=== PATIENT | male | born 1990 | race Caucasian/White ===

== ENCOUNTER 2016-04-15 01:47 | Emergency (ER) | payer OTHER ==
[~2016-04-15] VITALS: Ht 177.8 cm; Wt 70.5 kg
[~2016-04-15 01:47] MED LIST: AMOXICILLIN 8751 TAB PO; CEPHALEXIN500 M1 PO; CLEOCIN HC150 MG/CAP PO; NO HOME MEDICATIONS; NORCO 325 MG-51 TAB PO; NORCO 325 MG-7.1 TAB PO; PERCOCET 325 MG1 TA2 PO
[2016-04-15 02:06] LABS: BASO # 0.1 (0.0-0.2); BASO % 0.7 % (0.0-2.0); EOS # 0.4 (0.0-0.7); EOS % 4.3 % (0-4.0); GRAN # 4.1 (1.4-6.5); GRAN % 49.1 % (42.2-75.2); HEMATOCRIT 43.6 % (42.0-52.0); HEMOGLOBIN 15.2 g/dl (13.5-18.0); LYMPH # 3.1 (1.2-3.4); LYMPH % 37.2 % (20.0-51.0); MEAN CELL VOLUME 89 fl (80.0-100.0); MEAN CORPUSCULAR HEMOGLOBIN 31 pg (27.0-31.0); MEAN CORPUSCULAR HGB CONC 35 g/dl (33.0-37.0); MEAN PLATELET VOLUME 8.8 fl (7.4-10.4); MONO # 0.7 (0.1-0.6); MONO % 8.3 % (1.7-9.3); PLATELET COUNT 324 K/mm3 (130-400); RED BLOOD COUNT 4.91 M/mm3 (4.20-5.60); REDCELL DISTRIBUTION WIDTH-CV 12.3 % (11.5-14.5); WHITE BLOOD COUNT 8.3 K/mm3 (4.8-10.8)
[2016-04-15 02:10] LABS: INR 0.9 (0.8-3.0); PROTHROMBIN TIME 10.2 SECONDS (9.7-12.8)
[2016-04-15 02:13] LABS: ADJUSTED CALCIUM 9.2 mg/dL (8.4-10.2); ALANINE AMINOTRANSFERASE 37 U/L (21-72); ALBUMIN 4.3 gm/dL (3.5-5.0); ALKALINE PHOSPHATASE 55 U/L (50-136); ANION GAP 10 mmol/L (7-16); BILIRUBIN,TOTAL 0.5 mg/dL (0.0-1.0); BLOOD UREA NITROGEN 14 mg/dL (9-20); CALCIUM 9.4 mg/dL (8.4-10.2); CARBON DIOXIDE 31 mmol/L (22-30); CHLORIDE 99 mmol/L (98-107); CREATININE, serum 0.92 mg/dL (0.66-1.25); GLUCOSE 113 mg/dL (74-106); PARTIAL THROMBOPLASTIN TIME 26.3 SECONDS (26.0-37.0); POTASSIUM 3.7 mmol/L (3.4-5.0); SODIUM 141 mmol/L (137-145); TOTAL PROTEIN 7.4 gm/dL (6.4-8.2)
[2016-04-15 04:30] LABS: AMPHETAMINE URINE POSITIVE; BARBITURATES URINE NEGATIVE; BENZODIAZEPINES URINE NEGATIVE; BUPRENORPHINE URINE NEGATIVE; METHADONE URINE NEGATIVE; OPIATES URINE NEGATIVE; OXYCODONE URINE NEGATIVE; PHENCYCLIDINE URINE NEGATIVE; PROPOXYPHENE URINE NEGATIVE; THC CANNABINOIDS URINE POSITIVE
[2016-04-15] MEDS ORDERED: NORCO 325 MG-51 TAB PO (04:46)
[2016-04-15] MEDS ORDERED: CEPHALEXIN500 M1 PO (04:46)
[2016-04-15 05:37] VITALS: BP 126/81; PULSE 92
== END 2016-04-15 05:42 | disposition home or self-care (01) ==
LOC: COL.ER 01:47
PROVIDERS: Emergency Medicine
DX: S81.032A Puncture wound without foreign body, left knee, initial encounter (principal); W32.0XXA Accidental handgun discharge, initial encounter; Y92.009 Unspecified place in unspecified non-institutional (private) residence as the place of occurrence of the external cause; Z23 Encounter for immunization
CPT/HCPCS: J0690; J3010; J7030; Q9967

== ENCOUNTER 2016-07-29 13:43 | Emergency (ER) | payer OTHER ==
[~2016-07-29] VITALS: Ht 177.8 cm; Wt 77.3 kg
[2016-07-29 13:45] VITALS: BP 152/98; TEMP 98.6
[2016-07-29] MEDS ORDERED: PEN-VEE K500 MG PO (15:04)
[2016-07-29] MEDS ORDERED: NORCO 325 MG-51 TAB PO (15:04)
[2016-07-29 15:11] VITALS: PULSE 89
== END 2016-07-29 15:11 | disposition home or self-care (01) ==
LOC: COL.ER 13:43
DX: S02.5XXA Fracture of tooth (traumatic), initial encounter for closed fracture (principal); W22.8XXA Striking against or struck by other objects, initial encounter; K08.89 Other specified disorders of teeth and supporting structures; F17.210 Nicotine dependence, cigarettes, uncomplicated

== ENCOUNTER 2016-08-09 23:13 | Emergency (ER) | payer OTHER ==
[~2016-08-09] VITALS: Ht 177.8 cm; Wt 68.2 kg
[~2016-08-09 23:13] MED LIST changes: +PEN-VEE K500 MG PO
[2016-08-09 23:17] VITALS: TEMP 96.3
[2016-08-09 23:32] LABS: BASO % 0.5 % (0.0-2.0); EOS # 0.1 (0.0-0.7); GRAN # 4.8 (1.4-6.5); GRAN % 58.4 % (42.2-75.2); HEMOGLOBIN 15.6 g/dl (13.5-18.0); LYMPH # 2.6 (1.2-3.4); LYMPH % 31.4 % (20.0-51.0); MEAN CELL VOLUME 88 fl (80.0-100.0); MEAN CORPUSCULAR HEMOGLOBIN 31 pg (27.0-31.0); MEAN CORPUSCULAR HGB CONC 36 g/dl (33.0-37.0); MONO # 0.7 (0.1-0.6); MONO % 8.6 % (1.7-9.3); PLATELET COUNT 342 K/mm3 (130-400); REDCELL DISTRIBUTION WIDTH-CV 12.7 % (11.5-14.5); WHITE BLOOD COUNT 8.1 K/mm3 (4.8-10.8)
[2016-08-09 23:42] LABS: ADJUSTED CALCIUM 9.5 mg/dL (8.4-10.2); ALANINE AMINOTRANSFERASE 36 U/L (21-72); ALBUMIN 4.8 gm/dL (3.5-5.0); ALKALINE PHOSPHATASE 68 U/L (50-136); ANION GAP 15 mmol/L (7-16); BILIRUBIN,TOTAL 0.5 mg/dL (0.0-1.0); BLOOD UREA NITROGEN 12 mg/dL (9-20); CALCIUM 10.1 mg/dL (8.4-10.2); CARBON DIOXIDE 23 mmol/L (22-30); CHLORIDE 105 mmol/L (98-107); CREATININE, serum 0.89 mg/dL (0.66-1.25); GLUCOSE 120 mg/dL (74-106); POTASSIUM 3.7 mmol/L (3.4-5.0); SODIUM 142 mmol/L (137-145); TOTAL PROTEIN 8.1 gm/dL (6.4-8.2)
[2016-08-10] MEDS ORDERED: AMOXICILLIN 8751 TAB PO (00:24)
[2016-08-10] MEDS ORDERED: NORCO 325 MG-51 TAB PO (00:24)
[2016-08-10 02:01] VITALS: BP 134/95; PULSE 90
== END 2016-08-10 03:39 | disposition home or self-care (01) ==
LOC: COL.ER 23:13
PROVIDERS: Emergency Medicine
DX: S02.40FA Zygomatic fracture, left side, initial encounter for closed fracture (principal); S02.82XA Fracture of other specified skull and facial bones, left side, initial encounter for closed fracture; S02.40DA Maxillary fracture, left side, initial encounter for closed fracture; Y04.0XXA Assault by unarmed brawl or fight, initial encounter; F15.90 Other stimulant use, unspecified, uncomplicated
CPT/HCPCS: J2405; J7030

== ENCOUNTER 2016-08-17 15:20 | Day surgery (SDC) | payer OTHER ==
[~2016-08-17] VITALS: Ht 177.8 cm; Wt 68.1 kg
[2016-08-17 16:22] VITALS: BP 131/71; PULSE 87; TEMP 97.3
[2016-08-17] MEDS ORDERED: TYLENOL 325MG325 MG PO (16:34)
[2016-08-17 19:53] VITALS: BP 137/65; PULSE 85; TEMP 98.3
[2016-08-17 20:37] VITALS: BP 127/83; PULSE 61; TEMP 98.9
== END 2016-08-17 21:10 | disposition home or self-care (01) ==
LOC: SDCO 15:20 → SURG 19:36 → SDCO 21:10
DX: S02.40BA Malar fracture, left side, initial encounter for closed fracture (principal); S02.2XXA Fracture of nasal bones, initial encounter for closed fracture; F17.210 Nicotine dependence, cigarettes, uncomplicated
CPT/HCPCS: OP; C1713; J0690; J1100; J2405; J2704; J2765; J3010; J7120

== ENCOUNTER 2020-06-05 21:52 | Emergency (ER) | payer SELFPAY ==
[~2020-06-05] VITALS: Ht 177.8 cm; Wt 75.0 kg
[~2020-06-05 21:52] MED LIST changes: +PHENERGAN 25 TA25 MG PO; +PROTONIX 40MG T40 MG PO; +TYLENOL 325MG325 MG PO; +ZOFRAN ODT4 MG PO
[2020-06-05 22:26] LABS: BASO % 0.3 % (0.0-2.0); EOS # 0.1 (0.0-0.7); EOS % 0.5 % (0-4.0); GRAN # 8.3 (1.4-6.5); GRAN % 79.1 % (42.2-75.2); HEMATOCRIT 42.5 % (42.0-52.0); HEMOGLOBIN 14.6 g/dl (13.5-18.0); LYMPH # 1.3 (1.2-3.4); LYMPH % 12.4 % (20.0-51.0); MEAN CELL VOLUME 87 fl (80.0-100.0); MEAN CORPUSCULAR HEMOGLOBIN 30 pg (27.0-31.0); MEAN CORPUSCULAR HGB CONC 34 g/dl (33.0-37.0); MEAN PLATELET VOLUME 8.9 fl (7.4-10.4); MONO # 0.8 (0.1-0.6); MONO % 7.5 % (1.7-9.3); PLATELET COUNT 256 K/mm3 (130-400); RED BLOOD COUNT 4.86 M/mm3 (4.20-5.60); REDCELL DISTRIBUTION WIDTH-CV 12.2 % (11.5-14.5)
[2020-06-05 22:37] LABS: ALBUMIN 4.3 gm/dL (3.5-5.0); BILIRUBIN,TOTAL 0.3 mg/dL (0.0-1.0); CALCIUM 9.2 mg/dL (8.4-10.2); CREATININE, serum 0.79 (0.66-1.25); POTASSIUM 4.1 mmol/L (3.4-5.0); TOTAL PROTEIN 7.5 gm/dL (6.4-8.2)
[2020-06-05 23:38] VITALS: BP 157/90; PULSE 105; TEMP 97.8
== END 2020-06-05 23:48 | disposition left against medical advice (07) ==
LOC: COL.ER 21:52
PROVIDERS: Emergency Medicine
DX: S68.123A Partial traumatic metacarpophalangeal amputation of left middle finger, initial encounter (principal); S68.125A Partial traumatic metacarpophalangeal amputation of left ring finger, initial encounter; S68.127A Partial traumatic metacarpophalangeal amputation of left little finger, initial encounter; Z98.890 Other specified postprocedural states; Z91.041 Radiographic dye allergy status; Z88.5 Allergy status to narcotic agent; Z23 Encounter for immunization; W31.3XXA Contact with prime movers, initial encounter
CPT/HCPCS: J0295; J3010; J7030